=== PATIENT | male | born 1985 | race Two or more races ===

== ENCOUNTER 2017-07-21 12:58 | Emergency (ER) | payer OTHER ==
[~2017-07-21] VITALS: Ht 165.1 cm; Wt 86.5 kg
[2017-07-21 13:10] VITALS: BP 148/80; PULSE 75; RESP 12; TEMP 98.8; O2SAT 96
[2017-07-21] MEDS ORDERED: TETANUS/DIPHTHERIA TOXOID ADULT 0.5 ML VIAL IM ONE (14:00)
--- NOTE | 2017-07-21 15:01 | PD ---
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 He is a [employer] employee. Unknown tetanus status. Otherwise, up-to-date on vaccinations. Denies history of HIV or hepatitis. Does not know the status of the source patient. Symptoms are mild to moderate in severity. Denies pain. No known aggravating or relieving factors. Has not taken any medications or try any treatments to alleviate his symptoms. No primary care provider. No known allergies. Denies significant past medical history. Has no other medical complaints. No other modifying factors or associated signs and symptoms. [facility] Social History Alcohol Use: Yes Tobacco Use: No Substance Use: No Allergies-Medications (Allergen,Severity, Reaction): Coded Allergies: No Known Allergies (Unverified , 07/21/17) Review of Systems Except as stated in HPI: all other systems reviewed are Neg Physical Exam Narrative GENERAL: Well-nourished, well-developed male patient, in no acute distress SKIN: Warm and dry. Palmar aspect of left index finger in between the PIP and DIP joints with small, superficial cut that is without erythema, edema, drainage. Finger with full range of motion, sensory intact, and is pink and warm. HEAD: Atraumatic. Normocephalic. EYES: Pupils equal and round. No scleral icterus. No injection or drainage. ENT: Mucosa pink and moist. Airway patent. NECK: Trachea midline. CARDIOVASCULAR: Regular rate. RESPIRATORY: No accessory muscle use. GASTROINTESTINAL: Flat. MUSCULOSKELETAL: No obvious deformities. No clubbing. No cyanosis. No edema. NEUROLOGICAL: Awake and alert. Oriented 3. No obvious cranial nerve deficits. Motor grossly within normal limits. Normal speech. PSYCHIATRIC: Appropriate mood and affect; insight and judgment normal. Data Data Last Documented VS Vital Signs Date Time Temp Pulse Resp B/P (MAP) Pulse Ox O2 Delivery O2 Flow Rate FiO2 07/21/17 13:10 98.8 75 12 148/80 (102) 96 Orders Orders Tetanus/Diphtheria Tox Adult (Tetanus/Di (07/21/17 14:00) Ed Discharge Order (07/21/17 15:02) [facility] Medical Decision Making Medical Screen Exam Complete: Yes Emergency Medical Condition: Yes Medical Record Reviewed: Yes Differential Diagnosis Cut, laceration, exposure of blood or body fluid Narrative Course 32-year-old male, [employer] employee, with exposure to bladder body fluid and a small, superficial cut of the left index finger. Blood exposure protocol initiated. Discussed PEP therapy and I do not recommend it at this time. The patient verbalized understanding and agreement. Source patient information was provided to the patient and is being followed up with. Instructed patient to follow-up with employee med. Tetanus updated in the ER. Instructed patient to follow up with primary care provider. Patient verbalizes understanding and agreement with treatment plan. Patient is medically cleared and stable for discharge. Discussed reasons to return to the emergency department. Patient agrees with treatment plan. The patients vital signs are stable and the patient is stable for outpatient follow-up and treatment. Patient discharged home, stable and in no acute distress. Diagnosis Primary Impression: Exposure to blood or body fluid Additional Impression: Cut of finger Referrals: [facility] [employer] ([facility] Human Resources Primary Care Physician Patient Instructions: Body Substance Exposure (ED), General Instructions, Postexposure Prophylaxis (ED) Additional Instructions: Follow blood exposure protocol instructions Follow-up with employee med Follow-up with primary care Return to emergency department for worsening of symptoms Med/Other Pt SpecificInfo: No Change to Meds, No Meds Exist/No RX given Disposition: 01 DISCHARGE HOME Condition: Stable Sepideh Garcia July 21, 2017 15:01
== END 2017-07-21 16:11 | disposition home or self-care (01) ==
LOC: NEPD 12:58
DX: S61.211A Laceration without foreign body of left index finger without damage to nail, initial encounter (principal); W26.8XXA Contact with other sharp object(s), not elsewhere classified, initial encounter; Y93.89 Activity, other specified; Y92.234 Operating room of hospital as the place of occurrence of the external cause; Y99.0 Civilian activity done for income or pay; Z23 Encounter for immunization
CPT/HCPCS: 90471; 90714